=== PATIENT | female | born 1965 | race Caucasian/White ===

== ENCOUNTER 2017-12-10 21:39 | Emergency (ER) | payer BC ==
[~2017-12-10] VITALS: Ht 170.2 cm; Wt 65.0 kg
[2017-12-10 22:46] VITALS: BP 130/75; PULSE 66; RESP 20; TEMP 98; O2SAT 98
[2017-12-10] MEDS ORDERED: CITA20TA4 PO (22:50)
[2017-12-10] MEDS ORDERED: XANA1TAB2 PO (22:50)
[2017-12-10] MEDS ORDERED: LEVO150T7 PO (22:50)
[2017-12-10] MEDS ORDERED: LIOT5TAB3 PO (22:50)
[2017-12-10] MEDS ORDERED: AZIT250T3 PO (22:50)
--- NOTE | 2017-12-10 23:03 | PD ---
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 Patient states that for the last 10 days or so she has been having intermittent palpitations where she feels as though her heart is beating to her chest and is beating irregularly. She states that this mainly occurs at night. She denies having chest pain. She does report that she has been on azithromycin for 3 days for a tooth infection. She denies fevers or chills. No dyspnea. PFSH Past Medical History Immunizations Current: Yes Thyroid Disease: Yes (HYPO) Tetanus Vaccination: Unknown Influenza Vaccination: No ?: Not Tubal Ligation: Yes Past Surgical History Appendectomy: Yes Section: Yes Cholecystectomy: Yes Other Surgery: Yes (GASTRIC SLEEVE) Social History Alcohol Use: No Tobacco Use: No Substance Use: No Allergies-Medications (Allergen,Severity, Reaction): Coded Allergies: No Known Allergies (Unverified , 12/10/17) Reported Meds & Prescriptions Reported Meds & Active Scripts Active Reported Azithromycin 250 Mg Tab 250 Mg PO DAILY Review of Systems Except as stated in HPI: all other systems reviewed are Neg Physical Exam Narrative GENERAL: Well-developed, well-nourished, comfortable, no apparent distress. SKIN: Focused skin assessment warm/dry. No pallor. No rash. HEAD: Atraumatic. Normocephalic. EYES: Pupils equal and round. No scleral icterus. No injection or drainage. ENT: No nasal bleeding or discharge. Mucous membranes pink and moist. NECK: Trachea midline. No JVD. CARDIOVASCULAR: Regular rate and rhythm. No murmur appreciated. Distal pulses brisk and equal bilaterally. RESPIRATORY: No accessory muscle use. Clear to auscultation. Breath sounds equal bilaterally. GASTROINTESTINAL: Abdomen soft, non-tender, nondistended. MUSCULOSKELETAL: No obvious deformities. No clubbing. No cyanosis. No edema. NEUROLOGICAL: Awake and alert. No obvious cranial nerve deficits. Motor grossly within normal limits. Normal speech. PSYCHIATRIC: Appropriate mood and affect; insight and judgment normal. Data Data Last Documented VS Vital Signs Date Time Temp Pulse Resp B/P (MAP) Pulse Ox O2 Delivery O2 Flow Rate FiO2 12/10/17 23:06 98 Room Air 12/10/17 22:46 98.0 66 20 130/75 (93) Orders Orders Electrocardiogram (12/10/17:) Ckmb (Isoenzyme) Profile (12/10/17 23:) Complete Blood Count With Diff (12/10/17:) Comprehensive Metabolic Panel (12/10/17) Magnesium (Mg) (12/10/17:) Prothrombin Time / Inr (Pt) (12/10/17:) Act Partial Throm Time (Ptt) (12/10/17:) Troponin I (12/10/17:) Chest, Single Ap (12/10/17) Ecg Monitoring (12/10/17:) Iv Access Insert/Monitor (12/10/17) Oximetry (12/10/17:) Sodium Chloride 0.9% Flush (Ns Flush) (12/10/17:) Thyroid Stimulating Hormone (12/10/17:) Potassium Chloride (Kcl) (12/11/17 00:00) Labs Laboratory Tests Test 12/10/17 23:07 White Blood Count 8.4 TH/MM3 Red Blood Count 4.61 MIL/MM3 Hemoglobin 13.6 GM/DL Hematocrit 40.7 % Mean Corpuscular Volume 88.3 FL Mean Corpuscular Hemoglobin 29.5 PG Mean Corpuscular Hemoglobin Concent 33.4 % Red Cell Distribution Width 12.8 % Platelet Count 315 TH/MM3 Mean Platelet Volume 9.4 FL Neutrophils (%) (Auto) 37.7 % Lymphocytes (%) (Auto) 49.3 % Monocytes (%) (Auto) 8.2 % Eosinophils (%) (Auto) 4.4 % Basophils (%) (Auto) 0.4 % Neutrophils # (Auto) 3.1 TH/MM3 Lymphocytes # (Auto) 4.1 TH/MM3 Monocytes # (Auto) 0.7 TH/MM3 Eosinophils # (Auto) 0.4 TH/MM3 Basophils # (Auto) 0.0 TH/MM3 CBC Comment DIFF FINAL Differential Comment Prothrombin Time 10.6 SEC Prothromb Time International Ratio 1.0 RATIO Activated Partial Thromboplast Time 25.9 SEC Blood Urea Nitrogen 11 MG/DL Creatinine 0.69 MG/DL Random Glucose 98 MG/DL Total Protein 7.4 GM/DL Albumin 3.8 GM/DL Calcium Level 9.6 MG/DL Magnesium Level 2.3 MG/DL Alkaline Phosphatase 78 U/L Aspartate Amino Transf (AST/SGOT) 15 U/L Alanine Aminotransferase (ALT/SGPT) 18 U/L Total Bilirubin 0.3 MG/DL Sodium Level 143 MEQ/L Potassium Level 3.1 MEQ/L Chloride Level 107 MEQ/L Carbon Dioxide Level 26.5 MEQ/L Anion Gap 10 MEQ/L Estimat Glomerular Filtration Rate 89 ML/MIN Total Creatine Kinase 50 U/L Troponin I LESS THAN 0.02 NG/ML Thyroid Stimulating Hormone 3rd Gen 0.007 uIU/ML MDM Medical Decision Making Medical Screen Exam Complete: Yes Emergency Medical Condition: Yes Interpretation(s) EKG: Sinus, rate 66, normal axis, normal intervals, no acute ischemic abnormality. Differential Diagnosis Palpitations, paroxysmal A. fib, electrolyte abnormality, anemia, hypothyroidism Narrative Course Vital signs show heart rate 66, blood pressure 130/75, pulse ox 98% on room air , oral temp of 98F. CBC: WBC 8.4, hemoglobin 13.6, hematocrit 40.7, platelets 315, lymphocytes 49%, monocytes 8.2%, eosinophils 4.4%. CMP is remarkable for potassium 3.1 which was replaced orally. Cardiac enzymes are negative. Chest x-ray shows no acute disease. The patient was made aware of all findings. She is resting comfortably. She is stable for further workup as an outpatient for likely Holter monitoring. She was advised on when to return to the emergency department. She verbalizes understanding and agreement with plan. Diagnosis Primary Impression: Palpitations Additional Impression: Hypokalemia Referrals: Primary Care Physician 3 days Additional Instructions: Follow-up with your primary care physician this week. Return to the emergency department for worsening symptoms or any other concerns. Disposition: 01 DISCHARGE HOME Condition: Stable Arun Ac MD December 10, 2017 23:03
[2017-12-10 23:06] VITALS: O2SAT 98
[2017-12-10] MEDS ORDERED: SODIUM CHLORIDE 0.9% FLUSH 10 ML FLUSH IVF PRN (23:15)
[2017-12-10 23:20] LABS: AUTOMATED NEUTROPHIL # 3.1 TH/MM3 (1.8-7.7); BASOPHIL % 0.4 % (0.0-2.0); EOSINOPHIL # 0.4 TH/MM3 (0-0.4); EOSINOPHIL % 4.4 % (0.0-4.0); HEMATOCRIT 40.7 % (35.0-46.0); HEMOGLOBIN 13.6 GM/DL (11.6-15.3); LYMPH % 49.3 % (9.0-44.0); LYMPHOCYTE # 4.1 TH/MM3 (1.0-4.8); MEAN CELL VOLUME 88.3 FL (80.0-100.0); MEAN CORPUSCULAR HEMOGLOBIN 29.5 PG (27.0-34.0); MEAN CORPUSCULAR HGB CONC 33.4 % (32.0-36.0); MEAN PLATELET VOLUME 9.4 FL (7.0-11.0); MONO % 8.2 % (0.0-8.0); MONOCYTE # 0.7 TH/MM3 (0-0.9); NEUT % 37.7 % (16.0-70.0); PLATELET COUNT 315 TH/MM3 (150-450); RED BLOOD COUNT 4.61 MIL/MM3 (4.00-5.30); RED CELL DISTRIBUTION WIDTH 12.8 % (11.6-17.2); WHITE BLOOD COUNT 8.4 TH/MM3 (4.0-11.0)
--- NOTE | 2017-12-10 23:29 | RADRPT ---
EXAM DATE: 12/10/2017 11:21 PM EDT AGE/SEX: 52 years / Female INDICATIONS: Irregular heartbeat / Palpitations and chest discomfort. CLINICAL DATA: This is the patient's initial encounter. Patient reports that signs and symptoms have been present for 2 weeks and indicates a pain score of 4/10. MEDICAL/SURGICAL HISTORY: Hypothyroidism. Cholecystectomy. Appendectomy. section. T ubal ligation. Ablation . Gastric sleeve. COMPARISON: No prior exams available for comparison. FINDINGS: A single AP view of the chest demonstrates the lungs to be symmetrically aerated without evidence of mass, infiltrate or effusion. The cardiomediastinal contours are unremarkable. Osseous structures a re intact. CONCLUSION: No active disease. Electronically signed by: Adalberto Reyes MD 12/10/2017 11:27 PM EDT
[2017-12-10 23:31] LABS: PROTHROMBIN TIME - PATIENT 10.6 SEC (9.8-11.6)
[2017-12-10 23:40] LABS: ALBUMIN 3.8 GM/DL (3.4-5.0); AST (GOT) 15 U/L (15-37); BICARBONATE 26.5 MEQ/L (21.0-32.0); BLOOD UREA NITROGEN 11 MG/DL (7-18); CALCIUM 9.6 MG/DL (8.5-10.1); CHLORIDE 107 MEQ/L (98-107); CREATININE 0.69 MG/DL (0.50-1.00); GLOMERULAR FILTRATION RATE 89 ML/MIN (>89); GLUCOSE,RANDOM 98 MG/DL (74-106); MAGNESIUM 2.3 MG/DL (1.5-2.5); SODIUM (NA) 143 MEQ/L (136-145)
[2017-12-10 23:41] LABS: ALT (GPT) 18 U/L (10-53)
[2017-12-10 23:51] LABS: ALKALINE PHOSPHATASE 78 U/L (45-117); TOTAL BILIRUBIN ADULT 0.3 MG/DL (0.2-1.0); TOTAL PROTEIN 7.4 GM/DL (6.4-8.2); TROPONIN I LESS THAN 0.02 NG/ML (0.02-0.05)
[2017-12-11] MEDS ORDERED: POTASSIUM CHLORIDE 20 MEQ CONTROLLED RELEASE TAB PO ONE
--- NOTE | 2017-12-11 14:57 | EKG ---
Date Performed: 12/10/2017 Time Performed: 23:03:19 PTAGE: 52 years EKG: Sinus rhythm NORMAL ECG NO PREVIOUS TRACING DOCTOR: Oskar Peng Interpretating Date/Time 12/11/2017 14:53:28
== END 2017-12-11 00:31 | disposition home or self-care (01) ==
LOC: NEPE 21:39
DX: R00.2 Palpitations (principal); R07.89 Other chest pain; E87.6 Hypokalemia; E03.9 Hypothyroidism, unspecified
CPT/HCPCS: 71045; 80053; 82550; 83735; 84443; 84484; 85025; 85610; 85730; 93005